=== PATIENT | female | born 1960 | race Hispanic/Latino ===

== ENCOUNTER 2018-07-22 15:02 | Emergency (ER) | payer MEDICARE ==
[2018-07-22 15:37] VITALS: O2SAT 99
--- NOTE | 2018-07-22 15:52 | C.PDOC ---
History Of Present Illness 57 y/o female,w/PMhx of psychiatric illness, presents to the ER complaining of worsening bilateral leg pain. Patient was treated for same complaint at another hospital and she was discharged with prescription for Clindamycin. Patient is taking the medication however she continues to have pain.Denies having fever and chills. Time Seen by Provider: 07/22/18 15:04 Chief Complaint (Nursing): Lower Extremity Problem/Injury History Per: Patient History/Exam Limitations: no limitations Onset/Duration Of Symptoms: Days Current Symptoms Are (Timing): Still Present Severity: Moderate Past Medical History Reviewed: Historical Data, Nursing Documentation, Vital Signs Vital Signs: Last Vital Signs Temp 98.3 F 07/22/18 15:04 Pulse 78 07/22/18 15:04 Resp 20 07/22/18 15:04 BP 136/83 07/22/18 15:04 Pulse Ox 99 07/22/18 15:04 Primary Care Provider: Non [facility] Provider, - Medical History PMH: Anxiety, Bipolar Disorder, Depression, Hypothyroidism, Schizophrenia Denies: Chronic Kidney Disease Surgical History: No Surg Hx - [facility] Procedures PSYCHIAT DRUG THERAP NEC (07/13/00) Family History: States: No Known Family Hx - Social History Hx Alcohol Use: No Hx Substance Use: No - Immunization History Hx Tetanus Toxoid Vaccination: Yes Hx Influenza Vaccination: Yes Hx Pneumococcal Vaccination: Yes Review Of Systems Except As Marked, All Systems Reviewed And Found Negative. Constitutional: Negative for: Fever, Chills Musculoskeletal: Positive for: Leg Pain (bilateral leg pain) Physical Exam - Physical Exam Appears: Other (morbidly obese) Skin: Normal Color, Warm, Dry, Other (minimal erythema to left leg, no warmth) Head: Atraumatic, Normacephalic Eye(s): bilateral: Normal Inspection Nose: Normal Oral Mucosa: Moist Neck: Supple Cardiovascular: Rhythm Regular Respiratory: Normal Breath Sounds, No Rales, No Rhonchi, No Wheezing Gastrointestinal/Abdominal: Normal Exam, Soft, No Tenderness, No Guarding, No Rebound Extremity: Normal ROM Neurological/Psych: Oriented x3, Normal Speech ED Course And Treatment - Laboratory Results Result Diagrams: 07/22/18 16:41 07/22/18 16:41 O2 Sat by Pulse Oximetry: 99 (RA) Pulse Ox Interpretation: Normal Medical Decision Making Medical Decision Making: Plan: --Tylenol --Labs --Venous Duplex Scan- Low Ext Bi. labs neg dvt study neg. no e/o of cellulits on exam. advised to cont po clinda. pt specifcally reuqest change to keflex due to bad reeaction to clinda, requests keflex. will dose. advise cont outpt management. feet warm pulses present pt eating in nad. stable for dc. no pyschiatric complaint no si hi hallucinations. Disposition - Disposition Disposition: HOME/ ROUTINE Disposition Time: 17:30 Condition: STABLE Additional Instructions: return to er with worsening symptoms or concerns. follow up in clinic. Prescriptions: Cephalexin [cephalexin] 500 mg PO QID #28 cap Instructions: [employer] Spl[employer] Forms: [employer] (Lithuanian) - Clinical Impression Clinical Impression: Leg pain - Scribe Statement The provider has reviewed the documentation as recorded by the Brenda Black Provider Attestation: All medical record entries made by the Scribe were at my direction and personally dictated by me. I have reviewed the chart and agree that the record accurately reflects my personal performance of the history, physical exam, medical decision making, and the department course for this patient. I have also personally directed, reviewed, and agree with the discharge instructions and disposition.
[2018-07-22 16:51] LABS: BASO # 0.1 K/uL (0.0-0.2); BASO % 0.8 % (0.0-2.0); EOS # 0.2 K/uL (0.0-0.7); EOS % 2.7 % (0.0-4.0); HEMOGLOBIN 12.3 g/dL (11.0-16.0); LYMPH # 2.7 K/uL (1.0-4.3); LYMPH % 34.1 % (20.0-40.0); MEAN CELL VOLUME 87.7 fL (81.0-99.0); MEAN CORPUSCULAR HEMOGLOBIN 29.2 pg (27.0-31.0); MEAN CORPUSCULAR HGB CONC 33.2 g/dL (33.0-37.0); MEAN PLATELET VOLUME 8.5 fL (7.2-11.7); MONO # 0.6 K/uL (0.0-0.8); MONO % 8.2 % (0.0-10.0); NEUT # 4.3 K/uL (1.8-7.0); NEUT % 54.2 % (50.0-75.0); RBC 4.23 Mil/uL (3.80-5.20); RED CELL DISTRIBUTION WIDTH 13.9 % (11.5-14.5); WHITE BLOOD COUNT 7.9 K/uL (4.8-10.8)
[2018-07-22 17:00] LABS: ALB/GLOB RATIO 1.2 (1.0-2.1); ALT/SGPT 25 U/L (9-52); AST/SGOT 31 U/L (14-36); BLOOD UREA NITROGEN 20 mg/dL (7-17); CALCIUM 9.1 mg/dl (8.6-10.4); GFR NON-AFRICAN AMERICAN > 60
[2018-07-22 17:01] LABS: PARTIAL THROMBOPLASTIN TIME 30.6 SECONDS (21-34)
[2018-07-22 17:30] VITALS: BP 132/69; PULSE 84; RESP 16; TEMP 97.8
--- NOTE | 2018-07-23 14:14 | VASCLAB ---
Date of service: 07/22/2018 PROCEDURE: Lower Extremity Venous Duplex Exam. HISTORY: Leg pain PRIORS: None. TECHNIQUE: Bilateral common femoral, femoral, popliteal and posterior tibial, peroneal and great saphenous veins were evaluated. Flow was assessed with color Doppler, compressibility, assessment of phasic flow and augmentation response. Report prepared by JUAN CARLOS Manuel FINDINGS: RIGHT: 1. Common Femoral Vein: 1.1. Compressibility - Fully compressible: Thrombus - None : Flow - Phasic: Augmentation -Normal: Reflux - None. 2. Femoral Vein: 2.1. Compressibility - Fully compressible: Thrombus - None : Flow - Phasic: Augmentation -Normal: Reflux - None. 3. Popliteal Vein: 3.1. Compressibility - Fully compressible: Thrombus - None : Flow - Phasic: Augmentation -Normal: Reflux - None. 4. Posterior Tibial Vein: 4.1. Compressibility - Fully compressible: Thrombus - None: Flow - Phasic: Augmentation -Normal: Reflux - None. 5. Peroneal Vein: 5.1. Unable to visualize due to swelling. 6. Great Saphenous Vein: 6.1. Compressibility - Fully compressible: Thrombus - None: Flow - Phasic: Augmentation - Normal: Reflux - None. LEFT: 1. Common Femoral Vein: 1.1. Compressibility - Fully compressible: Thrombus - None: Flow - Phasic: Augmentation -Normal: Reflux - None. 2. Femoral Vein: (proximal and mid) 2.1. Compressibility - Fully compressible: Thrombus - None: Flow - Phasic: Augmentation -Normal: Reflux - None. 3. Popliteal Vein: 3.1. Compressibility - Fully compressible: Thrombus - None : Flow - Phasic: Augmentation -Normal: Reflux - None. 4. Posterior Tibial Vein: 4.1. Unable to visualize due to swelling. 5. Peroneal Vein: 5.1. Unable to visualize due to swelling. 6. Great Saphenous Vein: 6.1. Compressibility - Fully compressible: Thrombus - None: Flow - Phasic: Augmentation - Normal: Reflux - None. OTHER FINDINGS: Technically difficult and limited exam, due to swelling present and patient's intolerance to probe compressions. IMPRESSION: No evidence of deep or superficial vein thrombosis of bilateral lower extremities, as visualized.
== END 2018-07-22 17:36 | disposition home or self-care (01) ==
LOC: C.ER 15:02
DX: M79.605 Pain in left leg (principal); M79.604 Pain in right leg; F20.9 Schizophrenia, unspecified; E03.9 Hypothyroidism, unspecified

== ENCOUNTER 2018-08-08 03:05 | Emergency (ER) | payer MEDICARE ==
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
[2018-08-08 05:28] VITALS: BP 110/70; PULSE 70; RESP 14; TEMP 97
[2018-08-08 05:29] VITALS: O2SAT 96
== END 2018-08-08 05:28 | disposition home or self-care (01) ==
LOC: C.ER 03:05
DX: I83.93 Asymptomatic varicose veins of bilateral lower extremities (principal); R60.0 Localized edema; E03.9 Hypothyroidism, unspecified; F20.9 Schizophrenia, unspecified